=== PATIENT | female | born 1995 ===

== ENCOUNTER 2017-04-15 17:55 | Emergency (ER) | payer MEDICAID, OTHER ==
[2017-04-15 17:56] VITALS: BMI 23.8
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
[2017-04-15 20:52] VITALS: BP 118/73; PULSE 78; RESP 20; TEMP 98
[2017-04-15 22:05] VITALS: O2SAT 100
== END 2017-04-15 20:51 | disposition home or self-care (01) ==
LOC: C.ER 17:55
DX: F07.81 Postconcussional syndrome (principal); G44.309 Post-traumatic headache, unspecified, not intractable; V43.52XA Car driver injured in collision with other type car in traffic accident, initial encounter; Y92.410 Unspecified street and highway as the place of occurrence of the external cause